=== PATIENT | male | born 2000 | race Caucasian/White ===

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

== ENCOUNTER 2021-12-25 08:22 | Emergency (ER) | payer BC, SELFPAY ==
--- NOTE | 2021-12-25 10:10 | EXP.UTC ---
Discharge Plan Disposition Patient Disposition: Home, Self-Care Condition: Good Prescriptions Prescriptions: No Action cephalexin 500 MG capsule 1,000 mg PO BID 5 Days Qty: 20 0RF naproxen 500 MG tablet 500 mg PO BID 10 Days Qty: 20 0RF cyclobenzaprine 10 MG tablet 10 mg PO TID PRN (Reason: Muscle Pain) 10 Days Qty: 20 0RF acetaminophen 500 MG tablet 500 mg PO Q6 PRN (Reason: (Substation Superintendent Use Only) Pain Per Pt) Qty: 60 0RF ibuprofen 600 MG tablet 600 mg PO Q6H Qty: 30 0RF methocarbamol 750 MG tablet 750 mg PO BID Qty: 30 0RF etodolac 200 MG capsule 200 mg PO Q6H PRN (Reason: Moderate Pain) Qty: 20 0RF methocarbamol 750 MG tablet 750 mg PO BID PRN (Reason: Muscle Spasm) Qty: 20 0RF Referrals Follow up/Referrals: Hi St MD [Primary Care Provider] - See instructions Activity Restrictions/Add. Instructions Additional Instructions/Restrictions: *Monitor Temp, Over the counter Motrin or Tylenol as directed/as needed Tylenol every 4 hours and Motrin every 6 hours (as long as your family doctor has told you that you can take it) for fever or pain. and straight to ER if unable to lower temp less than 101.0 after medication given *Warm salt water gargles may help to soothe the throat *Throat Lozenges? *Warm fluids like tea with honey may help to soothe the throat? *Sleep elevated *Humidifier/Vaporizer *Flonase 2 sprays in each nostril daily but be aware that it may take 2-3 days before you notice improvement *Bromfed may cause drowsiness. Know how it effects you (your child) before driving, caring for small child, or sending your child to school. Not other antihistamines/allergy medications while taking bromfed Your throat swab was sent for culture. Those results are typically sent to your primary care. Be sure to follow up in 2-3 days with your family doctor/primary care physician if no improvement so they can review those result and treat if necessary. If you don?t have a primary care doctor, I recommend you get one but in the mean time, you will have to return to a walk in clinic Follow up IMMEDIATELY for new or worsening symptoms or no Noticeable improvement over the next 48-72 hours. 911 for difficulty breathing or swallowing Clinical Impressions Clinical Impression: Viral syndrome Stand Alone Forms Stand Alone Forms: Work/School Release Instructions Patient Instructions: DI for Viral Syndrome, Diarrhea Discharge ED Provider: Lindsey Fisher [facility] [place] HPI General Stated complaint: sore throat, drainage, diarrhea, BARNEY, weakness Time Seen by Provider: 12/25/21 10:10 History of Present Illness Provider Complaint: Patient states that he hasnt felt well in several days State that he has been having body aches, chills, headache, diarrhea and over all not feeling well States that he is unsure if he has had fever or not but today he was feeling worse so he came in Related Data Previous Rx's Medication Instructions Recorded cephalexin 500 mg capsule 1,000 mg PO BID 5 days #20 caps 11/24/18 cyclobenzaprine 10 mg tablet 10 mg PO TID PRN Muscle Pain 10 12/19/18 days #20 tabs naproxen 500 mg tablet 500 mg PO BID 10 days #20 tabs 12/19/18 acetaminophen 500 mg tablet 500 mg PO Q6 PRN (Substation Superintendent Use Only) 01/13/19 Pain Per Pt #60 tabs ibuprofen 600 mg tablet 600 mg PO Q6H #30 tabs 01/13/19 methocarbamol 750 mg tablet 750 mg PO BID #30 tabs 01/13/19 etodolac 200 mg capsule 200 mg PO Q6H PRN Moderate Pain 12/12/19 #20 caps methocarbamol 750 mg tablet 750 mg PO BID PRN Muscle Spasm #20 12/12/19 tabs Allergies Allergy/AdvReac Type Severity Reaction Status Date / Time Penicillins [PENICILLINS] Allergy Intermediate I-RASH Verified 12/25/21 10:23 venom-honey bee Allergy Intermediate Hives Verified 12/25/21 10:23 codeine [CODEINE] Allergy Mild I-RASH Verified 12/25/21 10:23 [facility] Social History Smoking
[2021-12-25 10:20] VITALS: BP 141/85; PULSE 62; RESP 18; TEMP 36.8; O2SAT 99; BMI 30.9
[2021-12-25 10:28] LABS: UTC Influenza A Antigen Negative (Negative); UTC Strep Screen (Rapid) Negative (Negative)
[2021-12-25 10:28] LABS: Adenovirus,PCR Not Detected (NotDetected); Bordetella Pertussis Not Detected (NotDetected); Chlamydophila Pneumoniae, PCR Not Detected (NotDetected); Coronavirus 19, PCR Not Detected (NotDetected); Coronavirus 229E Not Detected (NotDetected); Coronavirus NL63 Not Detected (NotDetected); Coronavirus OC43 Not Detected (NotDetected); Coronovirus HKU1,PCR Not Detected (NotDetected); Human Metapneumovirus Not Detected (NotDetected); Influenza A, PCR Not Detected (NotDetected); Influenza AH1, 2009 Not Detected (NotDetected); Influenza AH1, PCR Not Detected (NotDetected); Influenza AH3,PCR Not Detected (NotDetected); Influenza B, PCR Not Detected (NotDetected); Mycoplasma Pneumoniae, PCR Not Detected (NotDetected); Parainfluenza 1, PCR Not Detected (NotDetected); Parainfluenza 2, PCR Not Detected (NotDetected); Parainfluenza 3, PCR Not Detected (NotDetected); Parainfluenza 4, PCR Not Detected (NotDetected); Rhinovirus/Enterovirus Not Detected (NotDetected)
[2021-12-25 10:29] LABS: UTC Influenza B Antigen Negative (Negative)
[2021-12-25 10:32] VITALS: BP 141/85; PULSE 62; RESP 18; TEMP 36.8
[2021-12-25 14:49] LABS: Respiratory Syncytial Virus Detected (NotDetected)
== END 2021-12-25 10:33 | disposition home or self-care (01) ==
PROVIDERS: Emergency Provider Nurse Practitioner; PCP Internal Medicine Adolescent Medicine
DX: J02.9 Acute pharyngitis, unspecified (principal); B97.4 Respiratory syncytial virus as the cause of diseases classified elsewhere; R53.1 Weakness; R19.7 Diarrhea, unspecified; R51.9 Headache, unspecified; Z20.822 Contact with and (suspected) exposure to COVID-19; M79.10 Myalgia, unspecified site; R50.9 Fever, unspecified; R09.81 Nasal congestion; Z79.1 Long term (current) use of non-steroidal anti-inflammatories (NSAID); Z88.0 Allergy status to penicillin; Z88.5 Allergy status to narcotic agent; Z88.8 Allergy status to other drugs, medicaments and biological substances
CPT/HCPCS: 87581; 87632; 87798; 87804; 87880; 99213; C9803; G0463; U0003; U0005

== ENCOUNTER 2022-01-21 10:37 | Emergency (ER) | payer BC, SELFPAY ==
[2022-01-21 12:10] VITALS: BP 132/72; PULSE 73; RESP 19; TEMP 36.6; O2SAT 99; BMI 31.8
--- NOTE | 2022-01-21 12:10 | EXP.UTC ---
Discharge Plan Disposition Patient Disposition: Home, Self-Care Condition: Good Prescriptions Prescriptions: No Action cephalexin 500 MG capsule 1,000 mg PO BID 5 Days Qty: 20 0RF naproxen 500 MG tablet 500 mg PO BID 10 Days Qty: 20 0RF cyclobenzaprine 10 MG tablet 10 mg PO TID PRN (Reason: Muscle Pain) 10 Days Qty: 20 0RF acetaminophen 500 MG tablet 500 mg PO Q6 PRN (Reason: (Spectacle Truer Use Only) Pain Per Pt) Qty: 60 0RF ibuprofen 600 MG tablet 600 mg PO Q6H Qty: 30 0RF methocarbamol 750 MG tablet 750 mg PO BID Qty: 30 0RF etodolac 200 MG capsule 200 mg PO Q6H PRN (Reason: Moderate Pain) Qty: 20 0RF methocarbamol 750 MG tablet 750 mg PO BID PRN (Reason: Muscle Spasm) Qty: 20 0RF Referrals Follow up/Referrals: Hi St MD [Primary Care Provider] - See instructions Activity Restrictions/Add. Instructions Additional Instructions/Restrictions: covid/flu swab was sent to lab, call later today for results. self isolate until test results are known to be negative No sign of a bacterial infection. Likely viral. Viruses can take 7-14 days to run their course. Nasal saline and bulb syringe or nose Patt to remove nasal drainage to help with nasal congestion. Hard to eat, drink, sleep with nasal congestion so important to keep this cleaned out. Monitor temp. Tylenol or Motrin as needed for pain or fever Encourage fluids, water, Gatorade, Powerade, Pedialyte if infant/toddler/child Warm salt water gargles Warm fluids Sore throat lozenges Sleep elevated Humidifier/vaporizer Follow-up immediately for new or worsening symptoms or no noticeable improvement over the next 48-72 hours. Clinical Impressions Clinical Impression: Viral upper respiratory illness Instructions Patient Instructions: DI for Viral Upper Respiratory Infection -- Adult Discharge ED Provider: Nicky ([facility])[place] [facility] [place] HPI General Stated complaint: fever, body aches, sore throat, vomiting, cough Time Seen by Provider: 01/21/22 12:10 HEENT Symptoms (Recalled from RN notes): Yes Resp Symptoms (Recalled from RN notes): Yes History of Present Illness Provider Complaint: 21 yr old male presents for body aches, fever, diarrhea and sore throat since saturday Related Data Previous Rx's Medication Instructions Recorded cephalexin 500 mg capsule 1,000 mg PO BID 5 days #20 caps 11/24/18 cyclobenzaprine 10 mg tablet 10 mg PO TID PRN Muscle Pain 10 12/19/18 days #20 tabs naproxen 500 mg tablet 500 mg PO BID 10 days #20 tabs 12/19/18 acetaminophen 500 mg tablet 500 mg PO Q6 PRN (Spectacle Truer Use Only) 01/13/19 Pain Per Pt #60 tabs ibuprofen 600 mg tablet 600 mg PO Q6H #30 tabs 01/13/19 methocarbamol 750 mg tablet 750 mg PO BID #30 tabs 01/13/19 etodolac 200 mg capsule 200 mg PO Q6H PRN Moderate Pain 12/12/19 #20 caps methocarbamol 750 mg tablet 750 mg PO BID PRN Muscle Spasm #20 12/12/19 tabs Allergies Allergy/AdvReac Type Severity Reaction Status Date / Time Penicillins [PENICILLINS] Allergy Intermediate I-RASH Verified 12/25/21 10:23 venom-honey bee Allergy Intermediate Hives Verified 12/25/21 10:23 codeine [CODEINE] Allergy Mild I-RASH Verified 12/25/21 10:23 [facility] Disclaimer: The information contained in this section may have been updated after the patient was seen, as this information can be updated by other users. 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
[2022-01-21 12:24] LABS: UTC Strep Screen (Rapid) Negative (Negative)
[2022-01-21 12:29] LABS: Coronavirus 19, PCR Not Detected (NotDetected); Influenza A, PCR Not Detected (NotDetected); Influenza B, PCR Not Detected (NotDetected)
[2022-01-21 12:31] VITALS: BP 132/72; PULSE 73; RESP 19; TEMP 36.6; O2SAT 99
== END 2022-01-21 12:32 | disposition home or self-care (01) ==
PROVIDERS: Emergency Provider Nurse Practitioner Family; PCP Internal Medicine Adolescent Medicine
DX: J06.9 Acute upper respiratory infection, unspecified (principal)
CPT/HCPCS: 87880; 99212; C9803; G0463; U0003; U0005

== ENCOUNTER 2022-01-24 08:03 | Emergency (ER) | payer BC, SELFPAY ==
--- NOTE | 2022-01-24 08:38 | EXP.UTC ---
Discharge Plan Disposition Patient Disposition: Home, Self-Care Condition: Good Prescriptions Prescriptions: New azithromycin [Zithromax] 250 mg tablet 250 mg PO UD DOSE PK Qty: 6 0RF Rx Instructions: Take two (2) tablets today, then one (1) tablet days #2 thru #5 benzonatate [benzonatate] 100 mg capsule 100 mg PO TIDP PRN (Reason: Cough) Qty: 30 0RF methylprednisolone 4 mg Tablets,Dose Pack 4 mg PO DIRECTED Qty: 21 0RF No Action cephalexin 500 MG capsule 1,000 mg PO BID 5 Days Qty: 20 0RF naproxen 500 MG tablet 500 mg PO BID 10 Days Qty: 20 0RF cyclobenzaprine 10 MG tablet 10 mg PO TID PRN (Reason: Muscle Pain) 10 Days Qty: 20 0RF acetaminophen 500 MG tablet 500 mg PO Q6 PRN (Reason: (Stencil Sprayer Use Only) Pain Per Pt) Qty: 60 0RF ibuprofen 600 MG tablet 600 mg PO Q6H Qty: 30 0RF methocarbamol 750 MG tablet 750 mg PO BID Qty: 30 0RF etodolac 200 MG capsule 200 mg PO Q6H PRN (Reason: Moderate Pain) Qty: 20 0RF methocarbamol 750 MG tablet 750 mg PO BID PRN (Reason: Muscle Spasm) Qty: 20 0RF Referrals Follow up/Referrals: Hi St MD [Primary Care Provider] - See instructions Activity Restrictions/Add. Instructions Additional Instructions/Restrictions: Drink plenty of fluids. Take tylenol or ibuprofen for pain or fever. Take the medications as directed. Follow up with your regular doctor. GO TO THE ER FOR ANY WORSENING SYMPTOMS Clinical Impressions Clinical Impression: Pharyngitis Stand Alone Forms Stand Alone Forms: Work/School Release Instructions Patient Instructions: DI for Pharyngitis/Tonsillopharyngitis -- Adult, Coronavirus Disease 2019, Preventing the Spread of Coronavirus Discharge Instructions Discharge ED Provider: John Kaiser [facility] [place] HPI General Stated complaint: Chest congest, loss of taste/smell, covid exposure Time Seen by Provider: 01/24/22 08:38 History of Present Illness Provider Complaint: He states that for the past 4 days he has had chest and sinus congestion. He has had sore throat and fever also. He was exposed to covid-19 before his symptoms began. Related Data Previous Rx's Medication Instructions Recorded cephalexin 500 mg capsule 1,000 mg PO BID 5 days #20 caps 11/24/18 cyclobenzaprine 10 mg tablet 10 mg PO TID PRN Muscle Pain 10 12/19/18 days #20 tabs naproxen 500 mg tablet 500 mg PO BID 10 days #20 tabs 12/19/18 acetaminophen 500 mg tablet 500 mg PO Q6 PRN (Stencil Sprayer Use Only) 01/13/19 Pain Per Pt #60 tabs ibuprofen 600 mg tablet 600 mg PO Q6H #30 tabs 01/13/19 methocarbamol 750 mg tablet 750 mg PO BID #30 tabs 01/13/19 etodolac 200 mg capsule 200 mg PO Q6H PRN Moderate Pain 12/12/19 #20 caps methocarbamol 750 mg tablet 750 mg PO BID PRN Muscle Spasm #20 12/12/19 tabs azithromycin 250 mg tablet 250 mg PO UD DOSE PK #6 tabs 01/24/22 (Zithromax) benzonatate 100 mg capsule 100 mg PO TIDP PRN Cough #30 caps 01/24/22 methylprednisolone 4 mg tablets in 4 mg PO DIRECTED #21 tabs 01/24/22 a dose pack Allergies Allergy/AdvReac Type Severity Reaction Status Date / Time Penicillins [PENICILLINS] Allergy Intermediate I-RASH Verified 01/24/22 09:32 venom-honey bee Allergy Intermediate Hives Verified 01/24/22 09:32 codeine [CODEINE] Allergy Mild I-RASH Verified 01/24/22 09:32 [facility] Disclaimer: The information contained in this section may have been updated after the patient was seen, as this information can be updated by other users. Social History Smoking Status: Never smoker second hand exposure: No alcohol intake: never current occupational status: employed Travel in the last 8 weeks: None housing: other ROS Obtained: Yes All systems reviewed & no additional complaints except as documented Constitutional Constitutional: Reports chills and Reports fever(s) Eyes Eyes: Denies eye discharge ENT Ears, Nose,
[2022-01-24 09:29] LABS: UTC Strep Screen (Rapid) Negative (Negative)
[2022-01-24 09:30] VITALS: BP 137/75; PULSE 84; RESP 16; TEMP 36.7; O2SAT 98; BMI 31.8
[2022-01-24 09:54] VITALS: BP 137/75; PULSE 84; RESP 16; TEMP 36.7
== END 2022-01-24 09:59 | disposition home or self-care (01) ==
PROVIDERS: Emergency Provider Nurse Practitioner Family; PCP Internal Medicine Adolescent Medicine
DX: J02.9 Acute pharyngitis, unspecified (principal); R50.9 Fever, unspecified; R09.89 Other specified symptoms and signs involving the circulatory and respiratory systems; R11.0 Nausea; R05.9 Cough, unspecified; Z20.822 Contact with and (suspected) exposure to COVID-19; M62.838 Other muscle spasm; Z79.1 Long term (current) use of non-steroidal anti-inflammatories (NSAID); Z79.52 Long term (current) use of systemic steroids; Z79.899 Other long term (current) drug therapy; Z88.0 Allergy status to penicillin; Z88.5 Allergy status to narcotic agent; Z91.030 Bee allergy status
CPT/HCPCS: 87880; 99213; C9803; G0463; U0003; U0005

== ENCOUNTER 2022-04-30 09:57 | Emergency (ER) | payer BC, SELFPAY ==
[2022-04-30 10:05] VITALS: BP 139/88; PULSE 92; RESP 20; TEMP 37.1; O2SAT 97; BMI 31.6
--- NOTE | 2022-04-30 10:17 | EXP.UTC ---
Discharge Plan Disposition Patient Disposition: Home, Self-Care Condition: Good Prescriptions Prescriptions: New ondansetron 4 mg tablet,disintegrating 4 mg PO Q8H PRN (Reason: nausea and vomiting) Qty: 10 0RF Referrals Follow up/Referrals: Hi St MD [Primary Care Provider] - See instructions Activity Restrictions/Add. Instructions Additional Instructions/Restrictions: Drink extra fluids with and between meals. If you have difficulty drinking, try very small amounts of water or suck on ice chips. ? Avoid fruit juices, as these do not replace minerals and can actually increase diarrhea. ? Children and adults can use sports drinks to replenish electrolytes. Younger children and infants should use products formulated for children, like oral rehydration solutions. ? Eat food in small amounts and let your stomach recover. ? Get lots of rest. You may feel tired or weak. ? No greasy or fried foods for the next 24-48 hours BRAT diet Bananas Rice Apples and [place] ? Make sure to drink plenty of liquids ? Return if needed ? Straight to ER if any life threatening symptoms ? Zofran as prescribed ? Follow up with family doctor in the next 48-72 hours if no improvement or any worsening of symptoms Clinical Impressions Clinical Impression: Viral syndrome Stand Alone Forms Stand Alone Forms: Work/School Release Instructions Patient Instructions: Nausea and Vomiting-Adult, Diarrhea, Ondansetron Discharge ED Provider: Lindsey Fisher [facility] [place] H[place] General Stated complaint: vomiting,diarrhea,chills,fatique,headache Mode of Arrival: Ambulatory Source of Information: Patient Limitations: No Limitations Time Seen by Provider: 04/30/22 10:17 Description of Symptoms (Recalled from Triage Doc. by RN): flu like symptoms chills, vomiting, diarrhea, fatigue, and BARNEY HEENT Symptoms (Recalled from RN notes): Yes Resp Symptoms (Recalled from RN notes): No Skin Symptoms (Recalled from RN notes): No MS Symptoms (Recalled from RN notes): No Functional Status (Recalled from RN notes): n/a History of Present Illness Provider Complaint: Patient states that he feels like he may have the flu States that he woke up this morning feeling achy, chills, N/V/D States that he tried to go to work but was vomiting and diarrhea and had to leave so he came in to get checked out Related Data Previous Rx's Medication Instructions Recorded ondansetron 4 mg disintegrating 4 mg PO Q8H PRN nausea and 04/30/22 tablet vomiting #10 tabs Allergies Allergy/AdvReac Type Severity Reaction Status Date / Time Penicillins [PENICILLINS] Allergy Intermediate I-RASH Verified 04/30/22 10:11 venom-honey bee Allergy Intermediate Hives Verified 04/30/22 10:11 codeine [CODEINE] Allergy Mild I-RASH Verified 04/30/22 10:11 Worker's Comp Is this a Worker's Comp case?: No [facility] Dis[facility]: The information contained in this section may have been updated after the patient was seen, as this information can be updated by other users. Social History Smoking Status: Never smoker second hand exposure: No alcohol intake: never current occupational status: employed Travel in the last 8 weeks: None housing: other ROS Obtained: Yes All systems reviewed & no additional complaints except as documented and Yes Systems reviewed as appropriate & no additional complaints except as documented Constitutional Constitutional: Reports system reviewed and no additional complaints, except as documented, Reports as per HPI, Reports body ache and Reports chills ENT Ears, Nose, Mouth, and Throat: Reports system reviewed and no additional complaints, except as documented and Reports as per HPI Cardiovascular Cardiovascular: Reports system reviewed and no additional complaints, except as documented and Reports as per HPI Respiratory Respiratory: Rep
[2022-04-30 10:18] LABS: UTC Influenza A Antigen Negative (Negative); UTC Influenza B Antigen Negative (Negative)
[2022-04-30 10:29] VITALS: BP 139/88; PULSE 92; RESP 20; TEMP 37.1; O2SAT 97
== END 2022-04-30 10:28 | disposition home or self-care (01) ==
PROVIDERS: Emergency Provider Nurse Practitioner; PCP Internal Medicine Adolescent Medicine
DX: R53.83 Other fatigue (principal); R11.2 Nausea with vomiting, unspecified; R51.9 Headache, unspecified; R19.7 Diarrhea, unspecified
CPT/HCPCS: 87804; 99212; 99214; G0463

== ENCOUNTER 2022-05-07 11:14 | Emergency (ER) | payer BC, SELFPAY ==
[2022-05-07 11:30] VITALS: BP 124/78; PULSE 77; RESP 20; TEMP 36.8; O2SAT 98; BMI 29.9
--- NOTE | 2022-05-07 11:50 | EXP.UTC ---
Discharge Plan Disposition Patient Disposition: Home, Self-Care Condition: Good Prescriptions Prescriptions: New promethazine 25 mg tablet 25 mg PO TID PRN (Reason: nausea and vomiting) Qty: 9 0RF Referrals Follow up/Referrals: Hi St MD [Primary Care Provider] - See instructions Activity Restrictions/Add. Instructions Additional Instructions/Restrictions: *Monitor Temp, Over the counter Motrin or Tylenol as directed/as needed Tylenol every 4 hours and Motrin every 6 hours (as long as your family doctor has told you that you can take it) for fever or pain. and straight to ER if unable to lower temp less than 101.0 after medication given *Warm salt water gargles may help to soothe the throat *Throat Lozenges? *Warm fluids like tea with honey may help to soothe the throat? *Sleep elevated *Humidifier/Vaporizer Your throat swab was sent for culture. Those results are typically sent to your primary care. Be sure to follow up in 2-3 days with your family doctor/primary care physician if no improvement so they can review those result and treat if necessary. If you don?t have a primary care doctor, I recommend you get one but in the mean time, you will have to return to a walk in clinic Follow up IMMEDIATELY for new or worsening symptoms or no Noticeable improvement over the next 48-72 hours. 911 for difficulty breathing or swallowing Clinical Impressions Clinical Impression: Viral upper respiratory illness Stand Alone Forms Stand Alone Forms: Work/School Release Instructions Patient Instructions: Sore Throat, Nausea and Vomiting-Adult Discharge ED Provider: Lindsey Fisher [facility] General Stated complaint: Headache, sore throat, vomiting, diarrhea Mode of Arrival: Ambulatory Source of Information: Patient Limitations: No Limitations Time Seen by Provider: 05/07/22 11:50 Description of Symptoms (Recalled from Triage Doc. by RN): body aches, sore throat, vomit, and diarrhea HEENT Symptoms (Recalled from RN notes): Yes Resp Symptoms (Recalled from RN notes): No Skin Symptoms (Recalled from RN notes): No MS Symptoms (Recalled from RN notes): No Functional Status (Recalled from RN notes): n/a History of Present Illness Provider Complaint: Patient states that yesterday he had headache and body aches, with chills State that this morning he has been having sore throat and body aches and on his way to work he vomited several times and had an episode of diarrhea Related Data Previous Rx's Medication Instructions Recorded promethazine 25 mg tablet 25 mg PO TID PRN nausea and 05/07/22 vomiting #9 tabs Allergies Allergy/AdvReac Type Severity Reaction Status Date / Time Penicillins [PENICILLINS] Allergy Intermediate I-RASH Verified 05/07/22 11:44 venom-honey bee Allergy Intermediate Hives Verified 05/07/22 11:44 codeine [CODEINE] Allergy Mild I-RASH Verified 05/07/22 11:44 Worker's Comp Is this a Worker's Comp case?: No [facility] Disclaimer: The information contained in this section may have been updated after the patient was seen, as this information can be updated by other users. Social History Smoking Status: Never smoker second hand exposure: No alcohol intake: never current occupational status: employed Travel in the last 8 weeks: None housing: other ROS Obtained: Yes All systems reviewed & no additional complaints except as documented Constitutional Constitutional: Reports system reviewed and no additional complaints, except as documented, Reports as per HPI, Reports body ache, Reports chills and Reports headache(s) ENT Ears, Nose, Mouth, and Throat: Reports system reviewed and no additional complaints, except as documented, Reports as per HPI, Reports headache(s), Reports nasal congestion and Reports sore throat Cardiovascular Cardiovascular: Reports system reviewed and no additional complaints, except
[2022-05-07 11:54] LABS: UTC Strep Screen (Rapid) Negative (Negative)
[2022-05-07 12:13] VITALS: BP 124/78; PULSE 77; RESP 20; TEMP 36.8; O2SAT 98
[2022-05-07 12:19] LABS: Coronavirus 19, PCR Not Detected (NotDetected); Influenza A, PCR Not Detected (NotDetected); Influenza B, PCR Not Detected (NotDetected)
== END 2022-05-07 12:13 | disposition home or self-care (01) ==
PROVIDERS: Emergency Provider Nurse Practitioner; PCP Internal Medicine Adolescent Medicine
DX: J06.9 Acute upper respiratory infection, unspecified (principal); R51.9 Headache, unspecified; R11.10 Vomiting, unspecified; R19.7 Diarrhea, unspecified; Z20.822 Contact with and (suspected) exposure to COVID-19
CPT/HCPCS: 87880; 99212; 99214; C9803; G0463; U0003; U0005

== ENCOUNTER 2022-06-17 15:36 | Emergency (ER) | payer BC, SELFPAY ==
[2022-06-17 15:37] VITALS: BP 135/81; PULSE 86; RESP 17; TEMP 36.7; O2SAT 100; BMI 27.1
--- NOTE | 2022-06-17 15:42 | PC.NURSE ---
DR WALLS AT BEDSIDE
--- NOTE | 2022-06-17 15:46 | HMH.EDGENADL ---
Discharge Plan Disposition Patient Disposition: Home, Self-Care Condition: Good Prescriptions Prescriptions: No Action promethazine 25 mg tablet 25 mg PO TID PRN (Reason: nausea and vomiting) Qty: 9 0RF Referrals Follow up/Referrals: Hi St MD [Primary Care Provider] - See instructions Activity Restrictions/Add. Instructions Additional Instructions/Restrictions: Rest, ice, compression, elevate. PCP tomorrow. Clinical Impressions Clinical Impression: Ankle sprain Stand Alone Forms Stand Alone Forms: Work/School Release Discharge ED Provider: Job Anders General Adult HPI General Stated complaint: [id number] right ankle pain Time Seen by Provider: 06/17/22 15:41 Mode of Arrival: Ambulatory Source of Information: Patient Limitations: No Limitations History of Present Illness HPI narrative: 21yo M presents to the ER secondary to right ankle sprain. Patient reports he twisted his ankle yesterday at approximately 1300 while playing golf. Was on the night hold when he twisted his ankle and was able to finish his game of golf. Reports history of breaking his ankle in the past and multiple ankle sprains. Related Data Previous Rx's Medication Instructions Recorded promethazine 25 mg tablet 25 mg PO TID PRN nausea and 05/07/22 vomiting #9 tabs Allergies Allergy/AdvReac Type Severity Reaction Status Date / Time Penicillins [PENICILLINS] Allergy Intermediate I-RASH Verified 05/07/22 11:44 venom-honey bee Allergy Intermediate Hives Verified 05/07/22 11:44 codeine [CODEINE] Allergy Mild I-RASH Verified 05/07/22 11:44 [facility] Disclaimer: The information contained in this section may have been updated after the patient was seen, as this information can be updated by other users. Social History Smoking Status: Never smoker second hand exposure: No alcohol intake: never current occupational status: employed Travel in the last 8 weeks: None housing: other ROS Obtained: Yes Systems reviewed as appropriate & no additional complaints except as documented Physical Exam General General appearance: alert and in no apparent distress Head Head exam: atraumatic Eye Eye exam: Present normal appearance Neck Neck exam: Present trachea midline Respiratory Respiratory exam: Absent respiratory distress Cardiovascular Cardiovascular exam: Present regular rate and normal rhythm Extremities Exam Extremities exam: Present normal capillary refill Expanded Lower Extremity Exam Right: Ankle exam: Present tenderness, swelling and ecchymosis; Absent deformity Neurological Exam Neurological exam: Present alert, oriented X3, CN II-XII intact and normal gait Skin Skin exam: Present warm and dry Medical Decision Making Medical Records Medical records reviewed: Yes I reviewed the patient's medical records. Mike Inquiry Pt receiving controlled substance: No Medical Decision Narrative: 21yo M evaluated for right ankle pain. Patient is in no distress. Physical exam notable for ecchymosis and swelling about the lateral malleolus of the right ankle. Tender to palpate. Discussed [place] ankle rules and offered x-ray. Patient declines x-ray and is confident he is only sprained his ankle. 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 Patient feels he needs a note for the rest of the week. Critical Care Time Critical Care Time Critical Care Time: No Attestation: On , the high probability of a clinically significant, sudden or life threatening deterioration of the following system(s) required my full and direct attention, intervention and personal management. The time I documented below is in addition to time spent performing reported procedures but includes the following listed in this critical care notation.
[2022-06-17 15:58] VITALS: BP 135/81; PULSE 85; RESP 18; TEMP 36.7; O2SAT 100
== END 2022-06-17 15:58 | disposition home or self-care (01) ==
LOC: ER 16:03
PROVIDERS: Emergency Provider Family Medicine; PCP Internal Medicine Adolescent Medicine
DX: S93.401A Sprain of unspecified ligament of right ankle, initial encounter (principal); X50.1XXA Overexertion from prolonged static or awkward postures, initial encounter
CPT/HCPCS: 99282; 99283

== ENCOUNTER → 2022-06-19 13:26 | Outpatient (CLI) | payer BC, SELFPAY ==
--- NOTE | 2022-06-19 13:37 | XR_ITS ---
FINAL REPORT CLINICAL HISTORY: RT ANKLE INJURY,PAIN FINDINGS: RIGHT ANKLE 3 views were obtained. There is no acute fracture or dislocation. There are small bony fragments along the medial and lateral malleoli compatible with old avulsion injury. The joint spaces are intact. There is no soft tissue abnormality. IMPRESSION: No acute bony abnormality. Reviewed, Interpreted and Dictated by Garima Hand MD Transcribed by Sonali Gonzalez Authenticated and [facility]
== END ==
LOC: RAD 13:28
PROVIDERS: PCP Nurse Practitioner Family; Visit Provider Nurse Practitioner Family
DX: M25.571 Pain in right ankle and joints of right foot (principal); S99.911A Unspecified injury of right ankle, initial encounter
CPT/HCPCS: 73610

== ENCOUNTER → 2022-08-07 07:31 | Outpatient (CLI) | payer BC, SELFPAY ==
--- NOTE | 2022-08-07 07:31 | MR_ITS ---
FINAL REPORT CLINICAL HISTORY: right ankle pain. twisted ankle 2 months ago and heard a pop. medial sided ankle pain. FINDINGS: Multiplanar MR imaging of the right ankle was performed without contrast. There is mild bone marrow edema in the superior calcaneal tuberosity. There is fluid in the retrocalcaneal bursa that may represent retrocalcaneal bursitis. No osteochondral lesion is identified. There are tears of the anterior talofibular and calcaneofibular ligaments. There is mild peroneus longus and peroneus brevis tenosynovitis The posterior plantar aponeurosis is intact. No significant joint effusion is seen. The musculature is intact. There is no evidence of soft tissue mass or cyst. IMPRESSION: Tears of the anterior talofibular and calcaneofibular ligaments. Mild bone marrow edema in the superior calcaneal tuberosity with fluid in the retrocalcaneal bursa that may represent retrocalcaneal bursitis. Mild peroneus longus and peroneus brevis tenosynovitis. Reviewed, Interpreted and Dictated by José Miguel Madrigal III, MD Transcribed by Marbin Ram Authenticated and [facility]
== END ==
LOC: RAD 07:31
PROVIDERS: PCP Nurse Practitioner Family; Visit Provider Podiatrist
DX: M25.571 Pain in right ankle and joints of right foot (principal); S93.401A Sprain of unspecified ligament of right ankle, initial encounter; M25.471 Effusion, right ankle
CPT/HCPCS: 73721